=== PATIENT | female | born 1945 | race Caucasian/White ===

== ENCOUNTER 2020-01-09 08:38 | Outpatient (CLI) | payer MEDICARE, OTHER, SELFPAY ==
--- NOTE | 2020-01-09 08:45 | ECHO_ITS ---
Patient Info Name: Yojana Akers Age: 74 years : 1945 Gender: Female Ht: 63 in Wt: 225 lbs BSA: 2.18 m2 HR: 77 bpm BP: 140 / 79 mmHg Technical Quality: Fair Exam Date: 01/09/2020 8:57 AM Exam Location: [facility] Patient Status: Outpatient Admit Date: 01/09/2020 Staff Ordering Physician: Fco Silva DO Supervisor Blueprinting And Photocopy: Winnie Jaquez RDCS Attending Provider: Fco Silva DO Referring Physician: Ricardo DIAL; Exam Type: CA echo dop color flow w con Study Info Indications - cardiac murmur Complete two-dimensional, color flow and Doppler transthoracic echocardiogram is performed with contrast to opacify the left ventricle and to improve the deliniation of the left ventricle endocardial borders. Contrast/Agitated Saline Contrast/Ag. Saline: Definity Amount: 1.00 ml Administered By: Milind Sharma, RN Summary 1. Left ventricular chamber dimension is normal. 2. Definity contrast administered improved wall motion interpretation. 3. Left ventricular systolic function is normal, estimated at 60-65%. 4. There is mildly increased left ventricular wall thickness. 5. The left ventricular diastolic function is grade I diastolic dysfunction. 6. E/e' 10 is mildly elevated. 7. There is moderate aortic valve sclerosis. 8. No pulmonary hypertension, estimated pulmonary arterial systolic pressure is 21 mmHg. Left Ventricle E/e' 10 is mildly elevated. Definity contrast administered improved wall motion interpretation. Left ventricular chamber dimension is normal. Left ventricular systolic function is normal, estimated at 60-65%. There is mildly increased left ventricular wall thickness. The left ventricular diastolic function is grade I diastolic dysfunction. Right Ventricle Right ventricular chamber dimension is normal. Right ventricular systolic function is normal. Left Atria Left atrial chamber dimension is normal. Right Atria Right atrial chamber dimension is normal. Aortic Valve The aortic valve is trileaflet. There is moderate aortic valve sclerosis. There is no aortic valve stenosis. There is no aortic valve regurgitation. Pulmonic Valve There is no pulmonic regurgitation. Mitral Valve There is no mitral valve stenosis. There is no mitral valve regurgitation. Tricuspid Valve There is no tricuspid valve regurgitation. No pulmonary hypertension, estimated pulmonary arterial systolic pressure is 21 mmHg. Pericardium/Pleural There is trivial pericardial effusion. Inferior Vena Cava Normal inferior vena cava with >50% collapse upon inspiration consistent with normal right atrial pressure, 5 mmHg. Aorta The aortic root size at the sinus of Valsalva is normal. Left Ventricular Outflow Tract Name Value Normal LVOT 2D LVOT Diameter 2.02 cm LVOT Doppler LVOT Peak Gradient 4 mmHg LVOT Mean Gradient 3 mmHg LVOT VTI 21.91 cm LVOT VTI/AV VTI Ratio 0.75 LVOT Stroke Volume 70.52 ml
== END 2020-01-09 08:39 | disposition home or self-care (01) ==
PROVIDERS: PCP Nurse Practitioner Family; Visit Provider Internal Medicine Cardiovascular Disease
DX: R01.1 Cardiac murmur, unspecified (principal)
CPT/HCPCS: C8929

== ENCOUNTER 2020-05-04 07:57 | Outpatient (CLI) | payer MEDICARE, OTHER, SELFPAY ==
--- NOTE | ~2020-05-04 | NM_ITS ---
EXAMINATION: NM tiago stress w perfusion DATE: 05/04/2020 10:43 INDICATION: Chest pain TECHNIQUE: Rest images were obtained following intravenous administration of 9.8 mCi Tc99m tetrofosmi n (Myoview). The patient was infused intravenously with Lexiscan (Regadenoson). Then, 30.2 mCi Tc99m tetrofosmin (Myoview) was administered intravenously, and stress images were obtained. Data was recon structed into short axis and horizontal and vertical long axis SPECT images. Gated SPECT images were also obtained. COMPARISON: None. FINDINGS: There is a small perfusion defect at the mid anterolateral segment which appears larger and more prominent on the rest than the on the stress images which is equivocal for infarct versus artif act. On the rest imaging the defect extends into the basilar inferolateral and inferior segments whic h appear normal on the stress images. No reversible ischemia. There is normal left ventricular chambe r size, wall motion and ejection fraction. Left ventricular ejection fraction measures >70%. IMPRESSION: 1. Small mild perfusion defect at the mid inferolateral segment which is equivocal for infarct versus artifact. No reversible ischemia. 2. Left ventricular ejection fraction measuring >70%. Reviewed, dictated and finalized at location A. ALT PAVING SUPERINTENDENT IMPRESSION: 1. Small mild perfusion defect at the mid inferolateral segment which is equivo ethan for infarct versus artifact. No reversible ischemia. 2. Left ventricular ejection fraction measuring >70%.
--- NOTE | 2020-05-04 08:43 | EST_ITS ---
Patient Info Name: Yojana Akers Age: 74 years : 1945 Gender: Female Ht: 62 in Wt: 215 lbs BSA: 2.12 m2 Exam Date: 05/04/2020 9:06 AM Exam Location: [facility] Stress Patient Status: Outpatient Admit Date: 05/04/2020 Staff Ordering Physician: Fco Silva DO Attending Provider: Fco Silva DO Exercise Technologist: India Lino RDCS Exercise Physician: Fco Silva DO Exam Type: CA stress tiago w NM Study Info Indications R07.9 - Chest pain, unspecified A regadenoson stress test was performed. Summary 1. 1. Negative lexiscan stress test for ischemic ST changes by ECG criteria. 2. 2. Baseline hypertension. 3. 3. Nuclear scan to follow and will be reported separately. Please correlate with it. 4. 4. Patient informed of the above results. Protocol: Lexiscan Stress ECG Details Stage: REST Duration (min): 4 min : 39 sec HR (bpm): 74 SBP (mmHg): 148 DBP (mmHg): 79 Stage: REST Duration (min): 12 min : 47 sec HR (bpm): 79 SBP (mmHg): 148 DBP (mmHg): 79 Stage: STAGE 1 Duration (min): 0 min : 59 sec HR (bpm): 88 SBP (mmHg): 137 DBP (mmHg): 94 Stage: RECOVERY Duration (min): 1 min : 0 sec HR (bpm): 94 SBP (mmHg): 159 DBP (mmHg): 86 Stage: RECOVERY Duration (min): 2 min : 0 sec HR (bpm): 87 SBP (mmHg): 159 DBP (mmHg): 86 Stage: RECOVERY Duration (min): 3 min : 0 sec HR (bpm): 88 SBP (mmHg): 155 DBP (mmHg): 77 Stage: RECOVERY Duration (min): 3 min : 2 sec HR (bpm): 88 SBP (mmHg): 155 DBP (mmHg): 77 Rest HR: 79 bpm Peak HR: 94 bpm Rest Sys BP: 148 mmHg Peak Sys BP: 159 mmHg Max Pred HR: 148 bpm % Max Pred HR: 64 % Target HR: 126 bpm Max RPP: 14,946 bpm*mmHg Termination Reason: Completed protocol Cardiac Symptoms: Shortness of breath Total Time: 1 min : 0 sec Rest Kinney BP: 79 mmHg Peak Kinney BP: 86 mmHg Total Dose: 0.4 mg Resting ECG Sinus rhythm, LAFB. Stress ECG No ST changes. Arrhythmias None. Report Signatures
== END 2020-05-04 07:58 | disposition home or self-care (01) ==
PROVIDERS: PCP Nurse Practitioner Family; Visit Provider Internal Medicine Cardiovascular Disease
DX: R07.9 Chest pain, unspecified (principal)
CPT/HCPCS: 78452; 93017; A9502; J2785

== ENCOUNTER 2020-07-14 07:47 | Outpatient (CLI) | payer MEDICARE, SELFPAY ==
--- NOTE | ~2020-07-14 | US_ITS ---
EXAMINATION: US art doppler w press LE BI DATE: 07/14/2020 08:30 INDICATION: Bilateral lower limb peripheral arterial occlusive disease TECHNIQUE: Segmental pressures and plethysmographic and Doppler waveforms of the brachial and lower e xtremity arteries were obtained. COMPARISON: None. FINDINGS: Right and left brachial artery pressures of 140 mm Hg and 146 mm Hg, respectively, are concordant (no rmal difference <= 30 mmHg). The right high-thigh pressure index is 1.27 (normal > 1.2). The left hig h thigh pressure index is unable to be obtained due to inability to occlude the vessels in the left t high. The right ankle-brachial index (AIRAM) is 1.03 (normal >= 0.9-1). The right great toe-brachial index (T BI) is 0.82 (normal >= 0.6-0.8). The right lower extremity segmental pressure gradients are increased between the arteries at the right ankle in the right opvsj-[id number]-rspb popliteal artery (normal gradien ts <= 20-30 mmHg between adjacent levels on the same leg or the same levels on the two legs). Arteria l waveforms are biphasic with brisk systolic upstrokes throughout. The left AIRAM is 0.90. The left TBI is 0.53. The left lower extremity segmental pressure gradients are increased between the left dorsalis pedis artery and the left dohtz-zpx-tpav popliteal artery. Arter ial waveforms are biphasic with brisk systolic upstrokes at the left common femoral, superficial femo ral and popliteal arteries. Increased jtfccx-kj-djega at the left posterior tibial and dorsalis pedis arteries but with suggestion of parvus et tardus waveforms with delayed upstrokes. IMPRESSION: 1. Mild arterial occlusive disease in the left lower limb with borderline left AIRAM and mildly decreas ed left TBI. 2. No significant arterial occlusive disease to the right lower limb with normal right AIRAM and TBI Reviewed, dictated and finalized at location A. IMPRESSION: 1. Mild arterial occlusive disease in the left lower limb with borderline left AIRAM and mildly decreased left TBI. 2. No significant arterial occlusive disease to the right lower limb with jovany l right AIRAM and TBI
== END 2020-07-14 07:48 | disposition home or self-care (01) ==
LOC: ANHIMG 07:50
PROVIDERS: PCP Nurse Practitioner Family; Visit Provider Podiatrist Foot & Ankle Surgery
DX: I77.9 Disorder of arteries and arterioles, unspecified (principal)
CPT/HCPCS: 93923

== ENCOUNTER 2021-05-17 08:00 | Outpatient (RCR) | payer MEDICARE, SELFPAY ==
--- NOTE | 2021-04-23 13:34 | PTOPEVAL ---
PHYSICAL THERAPY EVALUATION AND PLAN OF CARE 04-23-21 Thank you for referring Yojana Akers to [facility] for the diagnosis of B LE lymphedema.? Yojana is scheduled to be seen for therapy? 3 x/week for 5 weeks. Please review, sign, date and return this plan of care YOLA. I agree with and certify that the following plan of care is medically necessary. Referring Physician Date Attending Provider: Hyacinth BEACH *PT Outpatient Evaluation Start: 04/23/21 12:38 Past Medical History Source of Past Medical History Patient Neurological History Hx Neurological Disorders No Significant History Cardiovascular History Hx Hypertension Yes: meds control Respiratory History Hx Respiratory Disorders No Significant History Gastrointestinal History Hx Appendectomy Yes Hx Cholecystectomy Yes Genitourinary History Hx Genitourinary Disorders No Significant History Musculoskeletal History Hx Back Pain Yes: chronic back pain Hx Orthopedic Surgery Yes: B TKR Endocrine History Hx Diabetes Yes: meds; HEENT History Hx HEENT Disorders No Significant History Reproductive History Hx Other Reproductive Disorders Yes: hysterectomy Other History Hx Other Medical Conditions Yes: obesity, mild PAD L LE Hx Other Surgeries Yes: B vein surgery ablation about 1 yr ago Evaluation Information Problem Diagnosis B LE lymphedema Onset Feb 2020 Prior Level of Function Activity Level (Last 3 Months) Activity of Daily Living Ability Independent Indoor/Home Mobility Independent Community Mobility Independent Stairs Ability Independent Functional Cognition (Planning, Shopping Independent , Taking Medications) Cooking Yes Cleaning Yes Laundry Yes Shopping Yes Driving Yes Home Setting Home Type House,Multiple Levels Living Situation With Spouse Support Available Local Family Support Mobility Assistive Devices (Used Last 3 None,Walker, Wheeled Months) Comments Additional Prior Level of Function pt reports local family assist Comments with carrying items into basement; use wheeled walker for distances pt is indep with bathing, dressing, light home tasks; does shopping, but have to walk slow due to tired; no falls in the past 6 months; Pain Assessment Timing of Pain Assessment Timing of Pain Assessment Assessment Pain Scale Pain Scale Used
--- NOTE | 2021-05-17 09:26 | PTOPEVAL ---
PHYSICAL THERAPY DISCHARGE 05-18-21 Refer to the clinical summary below for her status today, compared to the initial evaluation. She will be discharged from PT services at this time. Thank you for referring Yojana Akers to [facility].? Please review, sign, date and return this Discharge report YOLA. I agree with and certify that the following plan of care is medically necessary. Referring Physician Date Attending Provider: Hyacinth Yates APRN-CRYPTOLOGIC SUPPORT SPECIALIST CC: Zbigniew Queen NP, general practioner, per pt request Document 05/17/21 08:24 TYSON (Rec: 05/17/21 09:26 TYSON [id number]) Subjective Information Yojana reports: leg garments Query Text:As Reported By Patient/ are comfortable and her Family family is helping her with them; does not have any concerns about being discharged today from PT; will continue to use her home pump and the garments. Timing of Pain Assessment Assessment Pain Scale Pain Scale Used Numeric (1 - 10) Self Report Pain Assessment Bilateral Leg(s) Reported Pain Level 0 Pain Description Sharp,Shooting Pain Frequency Chronic,Intermittent Lowest Pain Intensity 0 Greatest Pain Intensity 8 Pain Score Pain Score 0: Self Report Additional Pain Score Comments tender over R and L tibia; at night, with lying down, have shooting, sharp pain over lower legs, lasting few seconds General Lower Extremity Range of Motion Gross Lower Extremity Range of Motion sitting active knee flexion R 115'/ L 100'; General Lower Extremity Strength Gross Lower Extremity Strength supine SLR R x 14 reps, stop due to increase hip pain/ L 20 reps; ankle pumps and circles in supine x 20 reps each ------ verbal instructions: continue supine and sitting LE exercises, 1-2 x/day; also continue to work on flexion knee stretch in sitting; importance of exercises to increase strength and knee ROM ; and to increase lymph flow to LE's Skin Inspection Location Left Lower Extremity,Right Lower Extremity Palpation Findings Cool Skin Temperature Tissue Texture
== END 2021-05-17 15:24 | disposition home or self-care (01) ==
LOC: ANHPT 08:00
PROVIDERS: PCP Nurse Practitioner Family
DX: I89.0 Lymphedema, not elsewhere classified (principal); R60.0 Localized edema
CPT/HCPCS: 29581; 97110; 97140; 97162